=== PATIENT | male | born 1990 | race Caucasian/White ===

== ENCOUNTER 2017-04-13 20:25 | Emergency (ER) | payer MEDICAID ==
[~2017-04-13] VITALS: Ht 172.7 cm; Wt 90.3 kg
[~2017-04-13 20:25] MED LIST: FIORICET 325 MG1 TAB PO
--- NOTE | 2017-04-13 20:47 | Urgent Treatment Center Report ---
History of Present Issue Date/Time Seen by Provider 04/13/172034 Visit Reason Pt arrived:Walked Presenting Problem:PT FELL THIS MORNING AND INJURED HIS RIHGT HAND. HAND IS VERY SWOLLEN, WITH BRUSING AND SOME ABRASIONS Location if Accident: Onset of symptoms date/time:/ or onset unknown for:MEDICAL HX UNKNOWN Have you (or family members/close friends) recently traveled outside the [place]? N If Yes, where/when: Have you had exposure to infectious disease within the past month? TB? Other? Specify: Source patient, RN notes reviewed Exam Limitations no limitations Comment Patient fell off a ladder this am, falling onto outstretched right hand. Used ice and Coban briefly, but continued to work. Now has swelling, pain in his right hand. ALLERGIES Coded Allergies: Penicillins (Mild, 04/13/17) Home Medications Reported Medications No Known Home Medications History Medical History General CAD? No Angina: No AL: No Hypertension? No Hyperlipidemia? No CHF? No DVT? No PE? No COPD? No Asthma? No Anemia? No GERD? No Gastric ulcers? No GI Bleed? No Hernia? No Thyroid Problems? No Hypothyroidism? No CVA? No Seizures? No Diabetes? No Renal Insuffiency? No UTI? No Stones? No BPH? No GB Disease: No Nephritic Syndrome? No Asplenia? No Hepatitis? No Sickle Cell Disease? No Arthritis? No Migraines? No Cataracts? No Glaucoma? No MRSA? No HIV? No TB? No Anxiety? No Depression? No Cancer? No More? No Immunization HX DT/Tetanus 1-4 YRS Surgical Hx Previous Surgery?N Family History Family HX Diabetes Yes Hypertension Yes Cancer Yes TB Yes Social History Smoking Hx Smoker: Never Smoker Tobacco: No Alcohol Alcohol: No Review of Systems All Other Systems Reviewed and Negative Musculoskeletal see HPI, joint pain Physical Exam Vital Signs Vital Signs Date Time Temp Pulse Resp B/P Pulse O2 O2 Flow FiO2 Ox Delivery Rate 04/13 2027 98.2 87 16 133/69 98 General Appearance normal appearance, no apparent distress Respiratory Status No: respiratory distress, trachea midline, chest symmetrical. Cardiovascular normal exam, regular rate/rhythm, no peripheral edema, no gallop, no JVD, no murmur, no rub Peripheral Pulses Pulses normal Yes Extremities swelling, painful ROM right hand/wrist; abrasions to knuckles; capillary refill and distal sensation intact Neurologic alert, normal exam, oriented x 3 Mental status normal mood/affect Medical Decision Making LABS/Meds/Orders Pt receiving controlled substance in ED? No Results/Orders Current Medication Orders Sig/Dylon Start time Last Medication Dose Route Stop Time Status Admin Ibuprofen 800 MG ONCE ONE 04/13 2045 DC 04/13 PO 04/13 Ibuprofen 0 .STK-MED ONE 04/13 2033 DC PO Orders Procedure Date/time Status WRIST-3 VIEWS-RT 04/13 2036 Active HAND-RT 3 VIEWS 04/13 2036 Active XRAY/CT/US XRAY/CT/US XRAY hand XR interpretation by reviewed by me Xray Results angulated and displaced fx 4th and 5th metacarpals Departure Departure Disposition DC Home or Self Care(routine) Clinical Impression Primary Impression: Fracture, metacarpal shaft Qualifiers: Encounter type: initial encounter Metacarpal bone: fourth Fracture type: closed Fracture alignment: displaced Laterality: right Qualified Code: S62.324A - Displaced fracture of shaft of fourth metacarpal bone, right hand, initial encounter for closed fracture Secondary Impressions: Metacarpal bone fracture Condition STABLE Referrals Kunal Ngo MD: [facility]-Call Office Patient Instructions DI for a Hand Fracture Discharge Counseling Counseled pt/family regarding diagnosis, home care, follow up needs Prescriptions Current Visit Scripts No Known Home Medications Comments f/u with Dr Ngo/Pineda in am at 2057
[2017-04-13 21:06] VITALS: BP 133/69
--- NOTE | 2017-04-14 08:18 | RADIOLOGY REPORT PS360 ---
HAND-RT 3 VIEWS HISTORY: Pain, swelling, and bruising FALL WITH SWELLING AND BRUISING ORDERING PHYSICIAN: MICAH WOODRUFF PATIENT AGE: 26 years COMPARISON: None FINDINGS: There is a comminuted fracture involving the proximal aspect of the fourth metacarpal. There is 4 mm ulnar displacement of the distal fracture fragment and mild impaction of the distal fracture fragments as well as 4 mm dorsal displacement of the distal fracture fragment and mild anterior angulation of the distal fracture fragment. In addition, there is a comminuted mid shaft fifth metacarpal fracture with 2 mm dorsal displacement along with anterior angulation of the distal fracture fragment. There is a healed fracture involving the distal aspect of the fifth metacarpal IMPRESSION: 1. Comminuted mildly displaced fractures involving the proximal aspect of the fourth metacarpal. 2. Comminuted minimally displaced fracture of the midshaft of the fifth metacarpal
--- NOTE | 2017-04-14 08:19 | RADIOLOGY REPORT PS360 ---
WRIST-3 VIEWS-RT HISTORY: FALL WITH SWELLING AND BRUISING ORDERING PHYSICIAN: MICAH WOODRUFF PATIENT AGE: 26 years COMPARISON: None FINDINGS: No wrist fracture or dislocation is evident. There is a comminuted fracture involving the proximal aspect of the fourth metacarpal. There is 4 mm ulnar displacement of the distal fracture fragment and mild impaction of the distal fracture fragments as well as 4 mm dorsal displacement of the distal fracture fragment and mild anterior angulation of the distal fracture fragment. In addition, there is a comminuted mid shaft fifth metacarpal fracture with 2 mm dorsal displacement along with anterior angulation of the distal fracture fragment. IMPRESSION: 1. Negative wrist. 2. Comminuted fractures of the fourth and fifth metacarpal as described above
== END 2017-04-13 21:07 | disposition home or self-care (01) ==
LOC: UTC 20:25
DX: S62.324A Displaced fracture of shaft of fourth metacarpal bone, right hand, initial encounter for closed fracture (principal); S62.326A Displaced fracture of shaft of fifth metacarpal bone, right hand, initial encounter for closed fracture; W11.XXXA Fall on and from ladder, initial encounter; Y92.009 Unspecified place in unspecified non-institutional (private) residence as the place of occurrence of the external cause